=== PATIENT | male | born 1990 | race Caucasian/White ===

== ENCOUNTER 2018-09-27 21:05 | Emergency (ER) | payer MEDICAID ==
--- NOTE | 2018-09-27 21:18 | ED ---
Neurological HPI - HPI Summary HPI Summary: A 28 y/o male brought in by [facility] ambulance presents to [facility] with a chief complaint of a possible seizure today. The patient was playing basketball outside all day today and had a seizure when he went to take a shower. The patient was reportedly post-ictal upon EMS arrival. Per EMS, the patient's eyes were rolling back and forth. The patient has a Hx of seizures. - History of Current Complaint Chief Complaint: EDSeizure Stated Complaint: "SEIZURE PER EMS" Hx Obtained From: Patient, EMS Onset/Duration: Started minutes ago, Resolved Timing: Intermittent Episodes Lasting: - unkown Current Severity: Mild Seizure Severity: Mild Pain Intensity: 0 Pain Scale Used: 0-10 Numeric Character: Unable To Describe Syncope Context: Unknown Aggravating: Nothing Alleviating: Nothing Associated Signs and Symptoms: Negative: Fever - Allergy/Home Medications Allergies/Adverse Reactions: Allergies Allergy/AdvReac Type Severity Reaction Status Date / Time Penicillins Allergy Unknown Verified 09/27/18 21:13 Reaction Details Home Medications: Home Medications Acetaminophen 650 mg PO Q6H PRN 09/27/18 [History Confirmed 09/27/18] Cetirizine* [ZyrTEC 10 MG TAB*] 10 mg PO DAILY 09/27/18 [History Confirmed 09/27] Divalproex Sodium [Depakote] 1,000 mg PO QPM 09/27/18 [History Confirmed ] Divalproex Sodium [Depakote] 250 mg PO QPM 09/27/18 [History Confirmed 09/27/18] Docusate Sodium [Colace] 100 mg PO DAILY 09/27/18 [History Confirmed 09/27/18] PARoxetine HCL TAB* [Paxil TAB*] 25 mg PO DAILY 09/27/18 [History Confirmed 07/13] Topiramate [Topamax] 25 mg PO DAILY 09/27/18 [History Confirmed 09/27/18] cloNIDine TAB* [Catapres 0.1 MG TAB*] 0.2 mg PO DAILY 09/27/18 [History Confirmed 09/27/18] PMH/Surg Hx/FS Hx/Imm Hx Sensory History: Denies: Hx Deafness EENT History: Denies: Hx Deafness - Immunization History Date of Tetanus Vaccine: unk Date of Influenza Vaccine: unk Infectious Disease History: No Infectious Disease History: Denies: Traveled Outside the [place] in Last 30 Days - Family History Known Family History: Positive: Hypertension - paternal grandmother, Diabetes - paternal grandmother - Social History Alcohol Use: None Substance Use Type: Reports: None Smoking Status (MU): Never Smoked Tobacco Review of Systems Negative: Fever Neurological: Other - positive: seizure All Other Systems Reviewed And Are Negative: Yes Physical Exam - Summary Physical Exam Summary: Appearance: Well-appearing, Well-nourished, lying in bed comfortably Skin: Warm, dry, no obvious rash Eyes: sclera anicteric, no conjunctival pallor ENT: mucous membranes moist, pharynx appears normal Neck: Supple, nontender Respiratory: Clear to auscultation, no signs of respiratory distress Cardiovascular: Normal S1, S2. No murmurs. Normal distal pulses in tibial and radial bilaterally. Abdomen: Soft, nontender, normal active bowel sounds present Musculoskeletal: Normal, Strength/ROM Intact Neurological: A&Ox3, awake and alert, mentation is normal, speech is fluent and appropriate Psychiatric: affect is normal, does not appear anxious or depressed Triage Information Reviewed: Yes Vital Signs On Initial Exam: Initial Vitals Temp Pulse Resp BP Pulse Ox 98.3 F 70 16 135/77 98 09/27/18 21:08 09/27/18 21:08 09/27/18 21:08 09/27/18 21:08 09/27/18 21:08 Vital Signs Reviewed: Yes Diagnostics - Vital Signs Vital Signs Temp Pulse Resp BP Pulse Ox 09/27/18 21:08 98.3 F 70 16 135/77 98 - Laboratory Result Diagrams: 09/27/18 21:34 09/27/18 21:34 Lab Statement: Any lab studies that have been ordered have been reviewed, and results considered in the medical decision making process. Course/Dx - Course Course Of Treatment: A 28 y/o male brought in by [facility] ambulance presents to [facility] with a chief complaint of a possible seizure today. The patient was playing basketball outside all day today and had a seizure when he went to take a shower. The physical exam was unremarkable. Blood work, chemistries, UA and toxicology obtained and are WNL. In the ED course the patient was given Sodium Chloride IV. The patient will be discharged and follow up with his PCP. The patient is agreeable with this plan. - Diagnoses Provider Diagnoses: Syncope Discharge - Sign-Out/Discharge Documenting (check all that apply): Patient Departure - DC Patient Received Moderate/Deep Sedation with Procedure: No - Discharge Plan Condition: Good Disposition: HOME Patient Education Materials: Syncope (ED) Referrals: [facility] [Outside] Additional Instructions: Check in with your regular doctor on Monday. It is not certain whether tonight' s episode was a fainting spell or a seizure, although the EMS personnel did feel you were post-ictal, meaing somewhat confused, which is common after a seizure. In any event you appear stable after a few hours of observation and your blood work looks ok, so it is safe to let you get home tonight. I would recommend rest and plenty of fluids through the weekend. - Billing Disposition and Condition Condition: GOOD Disposition: Home - Attestation Statements Document Initiated by Kaitlynnibe: Yes Documenting Scribe: Jamil Valencia Provider For Whom Laith is Documenting (Include Credential): Chay Alfaro MD Scribe Attestation: I, Jamil Valencia, scribed for Chay Alfaro MD on 10/01/18 at 0544. Scribe Documentation Reviewed: Yes Provider Attestation: The documentation as recorded by the Jamil wooten accurately reflects the service I personally performed and the decisions made by me, Chay Alfaro MD Status of Scribe Document: Viewed
[2018-09-27] MEDS ORDERED: NS 0.9% 1000 ML** 2,000 ML IV ONE (21:24)
[2018-09-27 21:49] LABS: ABS Eosinophils 0.4 10^3/ul (0-0.6); ABS Lymphocytes 1.8 10^3/ul (1.0-4.8); ABS Monocytes 0.8 10^3/ul (0-0.8); ABS Neutrophils 2.8 10^3/ul (1.5-7.7); Eosinophil % 6.8 %; Hematocrit 43 % (42-52); Hemoglobin 14.5 g/dL (14.0-18.0); Lymphocyte % 31.1 %; Mean Corpuscular HGB Conc 34 g/dL (31-36); Mean Corpuscular Hemoglobin 30 pg (27-31); Mean Corpuscular Volume 88 fL (80-94); Mean Platelet Volume 9.5 fL (7.4-10.4); Nucleated Red Blood Cells % 0.1; Platelet Count 181 10^3/uL (150-450); Red Blood Count 4.89 10^6 /uL (4.18-5.48); Red Cell Distribution Width 13 % (10-15); White Blood Count 5.9 10^3/uL (3.5-10.8)
[2018-09-27 21:53] LABS: INR 1.09 (0.82-1.09)
[2018-09-27 22:00] LABS: Urine Appearance Clear; Urine Bilirubin Negative (Negative); Urine Blood Negative (Negative); Urine Color Yellow; Urine Glucose Negative (Negative); Urine Ketones Negative (Negative); Urine Nitrite Negative (Negative); Urine Protein Negative (Negative); Urine Specific Gravity 1.023 (1.010-1.030); Urine Urobilinogen Negative (Negative)
[2018-09-27 22:06] LABS: Albumin 4.3 g/dL (3.2-5.2); Albumin/Globulin Ratio 1.4 (1-3); BUN/Creatinine Ratio 18.2 (8-20); Calcium 9.8 mg/dL (8.6-10.3); EGFR Non-African American 101.7 (>60); Magnesium 1.9 mg/dL (1.9-2.7); Total Bilirubin 0.3 mg/dL (0.2-1.0); Total Protein 7.3 g/dL (6.4-8.9)
[2018-09-28 00:18] VITALS: BP 117/59
== END 2018-09-28 00:17 | disposition home or self-care (01) ==
LOC: EDBD → ED 21:05
DX: R55 Syncope and collapse (principal); Z88.0 Allergy status to penicillin
CPT/HCPCS: 36415; 80053; 80164; 81003; 83605; 83735; 85025; 85610; 96360; 99283

== ENCOUNTER 2018-11-02 20:13 | Emergency (ER) | payer MEDICAID ==
--- NOTE | 2018-11-02 20:19 | ED ---
Neurological HPI - HPI Summary HPI Summary: This patient is a 28 year old male brought in by EMS presenting to [facility] with a chief complaint of seizures. EMS states they were called for a diabetic emergency because of a Hx of diabetes and he was acting disoriented and when his friends tested his sugar he was hyperglycemic (170 g/dl). EMS states the patient was A&O X 3 in the ambulance with a GCS of 15, and a normal glucose of 84 g/dl, with the patients answering all questions. Then he lost consciousness, his lip started quivering, and his right hand started to shake. The patient has a Hx of seizures per EMS. The patient is awake and oriented in the room. He affirms a Hx of seizures. He said he did not have anything to eat today. He says he has been taking his medications for seizures. He says he was playing basketball just prior to the episode. - History of Current Complaint Stated Complaint: SEIZURE PER EMS Hx Obtained From: EMS Onset/Duration: Started minutes ago Onset Severity: Mild Current Severity: Severe Seizure Severity: Mild Syncope Context: Witnessed, Loss of Consciousness: Yes - Allergy/Home Medications Allergies/Adverse Reactions: Allergies Allergy/AdvReac Type Severity Reaction Status Date / Time Penicillins Allergy Unknown Verified 09/27/18 21:13 Reaction Details Home Medications: Home Medications Bismuth Subsalicylate [Pepto-Bismol Max Strength] 525 mg PO 11/02/18 [History] EPINEPHrine [Epipen] 0.3 mg IJ PRN 11/02/18 [History] PMH/Surg Hx/FS Hx/Imm Hx Endocrine/Hematology History: Reports: Hx Diabetes Sensory History: Denies: Hx Deafness Neurological History: Reports: Hx Seizures - Immunization History Date of Tetanus Vaccine: unk Date of Influenza Vaccine: unk - Family History Known Family History: Positive: Hypertension - paternal grandmother, Diabetes - paternal grandmother - Social History Alcohol Use: None Substance Use Type: Reports: None Smoking Status (MU): Never Smoked Tobacco Review of Systems Negative: Fever Neurological: Other - Lip and hand quivering, disoriented Positive: Syncope - LOC All Other Systems Reviewed And Are Negative: Yes Physical Exam - Summary Physical Exam Summary: VITAL SIGNS: Reviewed. GENERAL: Patient is a well-developed and nourished MALE who is lying comfortable in the stretcher. Patient is not in any acute respiratory distress. HEAD AND FACE: No signs of trauma. No ecchymosis, hematomas or skull depressions. No sinus tenderness. EYES: PERRLA, EOMI x 2, No injected conjunctiva, no nystagmus. EARS: Hearing grossly intact. Ear canals and tympanic membranes are within normal limits. MOUTH: Oropharynx within normal limits. NECK: Supple, trachea is midline, no adenopathy, no JVD, no carotid bruit, no c- spine tenderness, neck with full ROM. CHEST: Symmetric, no tenderness at palpation LUNGS: Clear to auscultation bilaterally. No wheezing or crackles. CVS: Regular rate and rhythm, S1 and S2 present, no murmurs or gallops appreciated. ABDOMEN: Soft, non-tender. No signs of distention. No rebound no guarding, and no masses palpated. Bowel sounds are normal. EXTREMITIES: FROM in all major joints, no edema, no cyanosis or clubbing. NEURO: Alert and oriented x 3. No acute neurological deficits. Speech is normal and follows commands. SKIN: Dry and warm Triage Information Reviewed: Yes Vital Signs On Initial Exam: Temp Pulse Resp BP Pulse Ox 98.8 F 64 16 128/77 98 11/02/18 20:14 11/02/18 20:14 11/02/18 20:14 11/02/18 20:14 11/02/18 20:14 Vital Signs Reviewed: Yes Diagnostics - Laboratory Result Diagrams: 11/02/18 21:02 11/02/18 21:02 Lab Statement: Any lab studies that have been ordered have been reviewed, and results considered in the medical decision making process. - EKG 2137 Cardiac Rate: Bradycardia - 55 BPM EKG Rhythm: Sinus Bradycardia Ectopy: PVCs Course/Dx - Course Course Of Treatment: This patient is a 28 year old male brought in by EMS presenting to [facility] with a chief complaint of seizures. Patient's labs are within normal limits. Suggest increasing his topamax from 25 to 50 mg. A plan for discharge was discussed with the patient and he was agreeable with this plan. - Diagnoses Provider Diagnoses: Syncope, Seizure Discharge - Sign-Out/Discharge Documenting (check all that apply): Patient Departure - Discharge Patient Received Moderate/Deep Sedation with Procedure: No - Discharge Plan Condition: Stable Disposition: HOME Patient Education Materials: Syncope (ED), Epilepsy (ED) Referrals: Nestor GRACE,Jose Granados [Primary Care Provider] - Additional Instructions: Return to ED with any new or worsening symptoms. - Attestation Statements Document Initiated by Scribe: Yes Documenting Scribe: Jose Vann Provider For Whom Scribe is Documenting (Include Credential): Diandra Torres MD Scribe Attestation: IJose, scribed for Diandra Torres MD on 11/02/18 at 2150. Status of Scribe Document: Ready
[2018-11-02 21:08] LABS: ABS Eosinophils 0.3 10^3/ul (0-0.6); ABS Monocytes 0.8 10^3/ul (0-0.8); ABS Neutrophils 3.8 10^3/ul (1.5-7.7); Eosinophil % 3.8 %; Hematocrit 43 % (42-52); Hemoglobin 15.1 g/dL (14.0-18.0); Lymphocyte % 29.3 %; Mean Corpuscular HGB Conc 35 g/dL (31-36); Mean Corpuscular Hemoglobin 30 pg (27-31); Mean Corpuscular Volume 87 fL (80-94); Mean Platelet Volume 8.8 fL (7.4-10.4); Platelet Count 180 10^3/uL (150-450); Red Blood Count 4.97 10^6 /uL (4.18-5.48); Red Cell Distribution Width 13 % (10-15); White Blood Count 6.9 10^3/uL (3.5-10.8)
[2018-11-02 21:26] LABS: Albumin 4.6 g/dL (3.2-5.2); Albumin/Globulin Ratio 1.4 (1-3); BUN/Creatinine Ratio 19.1 (8-20); Calcium 9.6 mg/dL (8.6-10.3); EGFR African American 121.4 (>60); EGFR Non-African American 100.4 (>60); Globulin 3.3 g/dL (2-4); Magnesium 1.9 mg/dL (1.9-2.7); Potassium 4.6 mmol/L (3.5-5.0); Total Bilirubin 0.4 mg/dL (0.2-1.0); Total Protein 7.9 g/dL (6.4-8.9)
[2018-11-02] MEDS ORDERED: Topiramate TAB(*) 25 MG PO ONE (21:50)
[2018-11-02 22:42] LABS: Urine Appearance Clear; Urine Bilirubin Negative (Negative); Urine Blood Negative (Negative); Urine Color Yellow; Urine Glucose Negative (Negative); Urine Ketones Trace (Negative); Urine Nitrite Negative (Negative); Urine Protein Negative (Negative); Urine Specific Gravity 1.012 (1.010-1.030); Urine Urobilinogen Negative (Negative)
[2018-11-02 22:50] VITALS: BP 129/74
== END 2018-11-02 22:51 | disposition home or self-care (01) ==
LOC: ED 20:13
DX: R56.9 Unspecified convulsions (principal); R55 Syncope and collapse; E11.9 Type 2 diabetes mellitus without complications; Z88.0 Allergy status to penicillin; Z79.899 Other long term (current) drug therapy
CPT/HCPCS: 36415; 80053; 80164; 81003; 82550; 83735; 85025; 93005; 99284; A9270-GY

== ENCOUNTER 2019-07-08 15:36 | Emergency (ER) | payer MEDICAID ==
--- NOTE | 2019-07-08 15:48 | ED ---
Head Injury - HPI Summary HPI Summary: 29 y/o M presenting from [facility] to [facility] accompanied by aide c/o 09/03 frontal headache and avulsion of skin at the left forehead at hairline after hitting his head on a wall at 1500 today. Per aide, patient was having a behavior issue and hit his head on a wall. No LOC, vomiting, weakness in extremities. Patient is able to ambulate. Symptoms aggravated by nothing. Symptoms alleviated by nothing. Medications reviewed. Allergies noted. Patient is allergic to penicillins. - History Of Current Complaint Chief Complaint: EDHeadInjury Stated Complaint: HEAD INJURY PER PT Time Seen by Provider: 07/08/19 15:43 Hx Obtained From: Patient, Family/Circular Sawyer Helper - aide Mechanism Of Injury: Other - hitting his head on wall Onset/Duration: Started Minutes Ago - 1500 today, Still Present Severity Currently: Moderate Pain Intensity: 6 Pain Scale Used: 0-10 Numeric Location of Head Injury: Frontal Location: Discrete At: - frontal Aggravating Factor(s): Other: - NOthing Alleviating Factor(s): Other: - Mpthomg Associated Signs And Symptoms: Negative - LOC, vomiting, weakness in extremities - Allergies/Home Medications Allergies/Adverse Reactions: Allergies Allergy/AdvReac Type Severity Reaction Status Date / Time Penicillins Allergy Unknown Verified 07/08/19 15:42 Reaction Details Home Medications: Home Medications Acetaminophen 650 mg PO Q6H PRN 09/27/18 [History Confirmed 11/02/18] Cetirizine* [ZyrTEC 10 MG TAB*] 10 mg PO DAILY PRN 09/27/18 [History Confirmed 11/02/18] Divalproex Sodium [Depakote] 1,000 mg PO QPM 09/27/18 [History Confirmed ] Divalproex Sodium [Depakote] 250 mg PO QPM 09/27/18 [History Confirmed 11/02/18] Docusate Sodium [Colace] 100 mg PO DAILY 09/27/18 [History Confirmed 11/02/18] PARoxetine HCL TAB* [Paxil TAB*] 25 mg PO DAILY 09/27/18 [History Confirmed 12/13] Topiramate [Topamax] 25 mg PO DAILY 09/27/18 [History Confirmed 11/02/18] cloNIDine TAB* [Catapres 0.1 MG TAB*] 0.2 mg PO DAILY 09/27/18 [History Confirmed 11/02/18] Bismuth Subsalicylate [Pepto-Bismol Max Strength] 525 mg PO 11/02/18 [History] EPINEPHrine [Epipen] 0.3 mg IJ PRN 11/02/18 [History] PMH/Surg Hx/FS Hx/Imm Hx Endocrine/Hematology History: Reports: Hx Diabetes Neurological History: Reports: Hx Seizures - Surgical History Surgical History: None - Immunization History Date of Tetanus Vaccine: unk Date of Influenza Vaccine: unk Infectious Disease History: No Infectious Disease History: Denies: Traveled Outside the [place] in Last 30 Days - Family History Known Family History: Positive: Hypertension - paternal grandmother, Diabetes - paternal grandmother - Social History Alcohol Use: None Substance Use Type: Reports: None Hx Tobacco Use: No Smoking Status (MU): Never Smoked Tobacco Review of Systems Negative: Vomiting Positive: Other - avulsion of skin at the left forehead at hairline Neurological/Mental Status: Negative - LOC Positive: Headache. Negative: Weakness All Other Systems Reviewed And Are Negative: Yes Physical Exam - Summary Physical Exam Summary: Constitutional: Well-developed, Well-nourished, Alert. (-) Distressed Skin: Warm, Dry; avulsion of skin at the left forehead at hairline, no laceration, area is roughly 3-cm by 2-cm, no venus tenderness HENT: Normocephalic; Atraumatic Eyes: Conjunctiva normal Neck: Musculoskeletal ROM normal neck. (-) JVD, (-) Stridor, (-) Tracheal deviation Cardio: Rhythm regular, rate normal, Heart sounds normal; Intact distal pulses; Radial pulses are 2+ and symmetric. (-) Murmur Pulmonary/Chest wall: Effort normal. (-) Respiratory distress, (-) Wheezes, (-) Rales Abd: Soft, (-) tenderness, (-) Distension, (-) Guarding, (-) Rebound Musculoskeletal: (-) Edema Lymph: (-) Cervical adenopathy Neuro: Alert, Oriented x3 Psych: Mood and affect Normal Triage Information Reviewed: Yes Vital Signs On Initial Exam: Initial Vitals Temp Pulse Resp BP Pulse Ox 97.7 F 71 19 138/81 99 07/08/19 15:37 07/08/19 15:37 07/08/19 15:37 07/08/19 15:37 07/08/19 15:37 Vital Signs Reviewed: Yes Procedures - Sedation Patient Received Moderate/Deep Sedation with Procedure: No Diagnostics - Vital Signs Vital Signs Temp Pulse Resp BP Pulse Ox 07/08/19 15:37 97.7 F 71 19 138/81 99 - Laboratory Lab Statement: Any lab studies that have been ordered have been reviewed, and results considered in the medical decision making process. Head Injury Course/Dx Course Of Treatment: Patient is here after a mechanical injury. Patient does not need a CT brain per Clinical decision making rules. Patient has an area of skin avulsion that is not suturable. Patient had his wound debrided and a dressing was applied. Patient is up-to-date on tetanus. - Diagnoses Provider Diagnoses: Closed head injury, Skin avulsion Discharge ED - Sign-Out/Discharge Documenting (check all that apply): Patient Departure - Discharge Plan Condition: Stable Disposition: HOME Patient Education Materials: Head Injury (ED) Referrals: [facility]or GRACE,Jose Granados [Primary Care Provider] - 1 Day Additional Instructions: Do local wound care with antibiotic ointment and dressing changes for the next 2 days. You can shower like normal. It might hurt when you get soap in the wound but that's fine to get soap in the wound. Please follow up with your primary care physician within three days. Please return to the Emergency Department for any new, worsening, or concerning symptoms (surrounding redness, pus draining, fever). - Billing Disposition and Condition Condition: STABLE Disposition: Home - Attestation Statements Document Initiated by Laith: Yes Documenting Scribe: Pat Suero Provider For Whom Laith is Documenting (Include Credential): Silvio Langston MD Scribe Attestation: IPat, scribed for Silvio Langston MD on 07/08/19 at 1759. Scribe Documentation Reviewed: Yes Provider Attestation: The documentation as recorded by the Pat wooten accurately reflects the service I personally performed and the decisions made by me, Silvio Langston MD Status of Scribe Document: Viewed
[2019-07-08] MEDS ORDERED: Bacitracin OINTMENT* 0.5% 0.5 oz TUBE TOPICAL ONE (15:55)
--- OUTSIDE RECORDS SUMMARY | 2019-07-08 16:09 | XMS REPORT | Continuity of Care Document ---
:1990 External Reference #:[id number] Author Name Bonifacio Mckenzie NP (transmitted by agent of provider Renae Vasquez) Address [address], [place] [address] Care Team Providers Name Role Phone Oanh Wall NP - Family Care Team Information Operator Technician [phone] Problems Description No Information Available Social History Type Date Description Comments Sex Unknown ETOH Use Never used alcohol Tobacco Use Start: Unknown Patient has never smoked Recreational Drug Use Never Used Drugs Smoking Status Reviewed: 05/28/19 Patient has never smoked Allergies, Adverse Reactions, Alerts Active Allergies Reaction Severity Comments Date Penicillin 05/28/2019 Inactive Allergies NKDA 04/19/2019 Medications Active Medications SIG Qnty Indications Ordering Date Provider Divalproex Sodium Take one tab po 180tabs G40.209 Benji SBailey 05/28/2019 500mg in the morning Ronen Ortiz Tablets (500 mg) and one tab at night with 250 mg tab (750 mg) Divalproex Sodium take 1 tablet by 90tabs G40.209 Benji SBailey 05/28/2019 250mg mouth at night Ronen Ortiz Tablets DR (take one 500 mg and 250 mg together at night) Paxil CR 2 by mouth every Unknown 12.5mg Tablets day ER 24HR Clonidine HCL 1 by mouth two Unknown 0.2mg times a day Tablets Acetaminophen 2 tabs by mouth Unknown 325mg every 6 hours Tablets (max 3000mg qd) Colace 1 tab by mouth Unknown 100mg Capsules 2-3 times a day Zyrtec Allergy take one tablet Unknown 10mg by mouth in the Capsules evening Immunizations Description No Information Available Vital Signs Date Vital Result Comment 05/28/2019 1:39pm Height 70 inches 5'10" Weight 218.00 lb Heart Rate 62 /min BP Systolic 124 mmHg BP Diastolic 64 mmHg BMI (Body Mass Index) 31.3 kg/m2 Results Description No Information Available Procedures Description No Information Available Medical Devices Description No Information Available Encounters Type Date Location Provider Dx Diagnosis Office Visit 05/28/2019 [facility] Bonifacio Mckenzie NP G40.209 Local- rel symptc 1:30p [facility] epi w cmplx prt seiz,not ntrct,w/o stat epi Assessments Date Code Description Provider 05/28/2019 G40.209 Localization-related (focal) (partial) symptomatic Bonifacio Mckenzie 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05/28/2019 - Bonifacio Mckenzie NPG40.209 Localization- related (focal) (partial) symptomatic epilepsy and epileptic syndromes with complex partial seizures, not intractable, without status epilepticusNew Medication:Divalproex Sodium 500 mg - Take one tab po in the morning (500 mg) and one tab at night with 250 mg tab (750 mg)Divalproex Sodium 250 mg - take 1 tablet by mouth at night (take one 500 mg and 250 mg together at night)Follow up :SIX MONTHSRecommendations:D/C Topiramate. Take Depakote 500 mg in the morning and 750 mg at night. In two weeks, obtain trough level for Depakote. Hold the morning dose of Depakote that day until blood work is drawn and then he may take it after blood work is completed. We will also order a CBC and CMP. Record any seizure related activity. Contact 911 for seizures lasting longer than 5 minutes. Functional Status Description No Information Available Mental Status Description No Information Available Referrals Description No Information Available
--- OUTSIDE RECORDS SUMMARY | 2019-07-08 16:09 | XMS REPORT | Continuity of Care Document ---
:1990 Author Organization [address] [place] [address] Address [address] [place] [address] Phone Care Team Providers Name Role Phone LIZBETH VALENTINO MD Unavailable Unavailable Allergies, Adverse Reactions, Alerts Substance Reaction Status spider venom Active PENICILLIN Unknown (unknown) Active Medications Medication Instructions Dosage Effective Status Comments Dates (start - stop) Tamiflu 75 mg take 1 capsule by 75 MG - Active capsule oral route every day divalproex ER 500 take 2 tablet by - Active mg tablet,extended oral route every release 24 hr evening at 8 pm divalproex ER 250 take 1 tablet by - Active mg tablet,extended oral route every release 24 hr evening at 8 pm topiramate 25 mg take 1 tablet by - Active tablet oral route every day at 8 am. Paxil CR 25 mg take 1 tablet by 25 MG - Active tablet,extended oral route every release day epinephrine 0.3 inject 0.3 0.3 MG - Active mg/0.3 mL milliliter by injection, intramuscular auto-injector route once as needed for anaphylaxis FreeStyle System use by as directed Not Available - Active Kit route every day Colace 100 mg take 1 capsule by - Active capsule oral route 2 times every day at 8 am and 8 pm PRN for constipation clonidine HCl 0.2 take 1 tablet by 0.2 MG - Active mg tablet oral route 2 times every day acetaminophen 325 take 2 tablets by - Active mg capsule mouth every 6 hours as needed. Zyrtec 10 mg take one by mouth - Active capsule daily as needed for seasonal allergy signs and symptoms. Mucinex 1,200 mg take 1 tablet by 1 tablet - No Longer tablet, extended oral route 2 times Active release every day divalproex ER 250 take 1 tablet by - No Longer mg tablet,extended oral route every Active release 24 hr evening at 8 pm divalproex ER 500 take 2 tablet by - No Longer mg tablet,extended oral route every Active release 24 hr evening at 8 pm Problems Condition Effective Dates (start - stop) Clinical Status Hemorrhoids, unspecified hemorrhoid type Blood in stool Acute non-recurrent sinusitis, unspecified location Constipation, unspecified constipation type Prediabetes ADHD (attention deficit hyperactivity disorder), combined type Developmental delay, mild Seizure disorder History of prediabetes Encounter for general adult medical examination without abnormal findings Encounter for screening for respiratory tuberculosis Current mild episode of major depressive disorder without prior episode Evaluation of hearing impairment Procedures Procedure Date Procedure Unknown Results Test Name Date and Time Measure Units Reference Range Abnormal Flag Status Comments Unknown Encounters Encounter Practice Location Reason(s) Diagnoses Date Provider Providers Description For Visit Copied on Encounter 2019 [facility] [employer], Primary 0-202 LIZBETH. 54 33-57 Care 0 [facility], [place], [place], [place] [address]. [place], [place], tel:[phone], [place] 779844 tel:[phone] 2019 [facility] Hemorrhoids, May- [employer], Primary unspecified 4 [place]. 33-57 Care hemorrhoid 0 54 [facility] [place] [place], [place], [facility] [address]. Tom non-recurrent tel:+[phone] [place], [place], sinusitis, 584[address], [place] unspecified tel:[phone] locationConstipatio [id number] n, unspecified constipation type 2019 [facility] [employer], Primary 3- [place]. 33-57 Care 0 54 [place], [place], [place], [address]. Tom tel:+[phone] [place], [place], [address], [place] tel:[phone] 2019 [facility] MADDIE [employer], Primary 0-202 [place]. 33-57 Care 0 [address] , [place], [place], [address], [address]. Tom tel:+[phone] [place], [place], 0714[address], [place] tel:[phone] 0001 - S Dec-3 [employer], Primary 1-201 LIZBETH. 54 33-57 Care [address] , [facility], [place], [place] [address]. [place], [place], tel:[phone], [place] 568482 tel:[phone] 0001 - S Dec-1 MADDIE [employer], Primary 3-201 [place]. 33-57 Care 9 54 [facility], [place], [place], Street, [address]. Tom tel:+[phone] [place], [place], [address], [place] tel:[phone] 0001 - S Oct-2 [employer], Primary 2-201 LIZBETH. 54 33-57 Care [address] , [facility], [place], [place] [address]. [place], [place], tel:[phone], [place] 944678 tel:[phone] 0001 - [facility] Prediabetes Aug-0 MADDIE [employer], Primary 6-201 [place]. 33-57 Care 9 [address] , [place], [place], Street, [address]. Tom tel:+[phone] [place], [place], 7911[address], [place] tel:[phone] 0001 - S Michael-1 MADDIE [employer], Primary 6-201 [place]. 33-57 Care [address] , [place], [place], Street, [address]. Tom tel:+[phone] [place], [place], [address], [place] tel:[phone] 0001 - S Michael-1 MADDIE [employer], Primary 2-201 [place]. 33-57 Care [address] , [place], [place], Street, [address]. Tom tel:+[phone] [place], [place], [address]77[address], [place] tel: [phone] 0001 - S ADHD (attention [facility], Primary deficit 0-201 [place]. 33-57 Care hyperactivity [address], [place] disorder), combined [place], [place], Street, typeDevelopmental [address]. [place] delay, mildSeizure tel: [place], [place], disorderHistory of [id number], prediabetesEncounte tel: r for general adult [phone] medical examination without abnormal findingsEncounter for screening for respiratory tuberculosisCurrent mild episode of major depressive disorder without prior episodeEvaluation of hearing impairment Family History Family Member Diagnosis Age At Onset Unknown Immunizations Vaccine Date Status Comments Influenza, injectable, administered Source: Other Provider quadrivalent, preservative free, split virus Influenza, injectable, administered Source: Source Unspecified quadrivalent, preservative free, split virus DTaP administered Source: Source Unspecified Payers Payer name Insurance type Covered republican ID Authorization(s) Unknown Social History Type Description Quantity Date Captured Comments Alcohol Use Details Unknown Caffeine Use Details Unknown Tobacco Use Status Unknown Smoking Status Unknown Vital Signs Date / Height Weight BMI Pulse Blood Temperature Respiratory Body Head BMI Time: Rate Pressure Rate Surface Circumference percentile Area Unknown Chief Complaint And Reason For Visit No information Reason For Referral Reason For Referral Unknown Plan Of Care Date Type Action Status Referral Ordered: ordered Neurology (related to Seizure disorder) Referral Ordered: ordered Referrals: Neurology Appointment date/timeframe: 3 Months Referral Ordered: ordered Hearing Test Complete Bilateral Appointment MONICA BAXTER Date Type Problem Goal Intervention Status Start Date Unknown History Of Present Illness Encounter Date Complaint History Of Present Illness No information Functional Status Encounter Date Functional Assessment Cognitive Assessment Unknown Medications Administered Medication Instructions Dosage Effective Dates (start - stop) Status Comments Drug Treatment Unknown Instructions Date Instruction Additional Information See above. Related to Constipation, unspecified constipation type If no improvement with Colace twice Related to Hemorrhoids, unspecified daily every day for 1 week, would hemorrhoid type recommend topical cream or suppository treatment for hemorrhoid and can treat dependent on staff report of patient concerns. Likely related to hemorrhoids, plan Related to Blood in stool to increase Colace from PRN to twice daily x 1 week. If no improvement or increased pain would recommend switching to Magnesium Citrate for a few days and continuing Colace PRN. Would also recommend treating patient for hemorrhoids if stool softener does not work. Recommended taking to ER for severe abdominal pain, increased LLQ pain, fever 101.5 or greater, increased N/V, or onset of diarrhea in presence of abdominal pain. Mucinex sent in for patient to be Related to Acute non-recurrent used twice daily for 7 days for sinusitis, unspecified location acute sinus symptoms. Risks and benefits of new medication discussed. Maintain adequate hydration and rest. Saline nasal spray for nasal congestion and nasal symptoms. May use salt water gargles, OTC throat spray, or lozenges for sore throat. Should use Tylenol/Motrin for fever or body aches. Warm moist air may help with relief of irritation and cough. Call or go to emergency department/walk in for worsening symptoms such as fever >101.5, shortness of breath, difficulty breathing, or worsening of current symptoms. Follow up yearly or when needed Related to Prediabetes [facility] Related to Developmental delay, mild Will fax order and referral to Related to Evaluation of hearing Racker to have evaluation completed. impairment Continue all medications as Related to Encounter for general directed. adult medical examination without abnormal findings Blood work to be completed. Fasting Related to History of prediabetes preferred. Can be done at any location in [place] for ease of convenience.Follow up 3-6 months. Continue Depakote as directed. Will Related to Seizure disorder call for referral to neurology. [facility]. No Related to ADHD (attention deficit referral typically required. Can hyperactivity disorder), combined schedule appointment on own through type [employer]. Continue Paxil. Risks and benefits Related to Current mild episode of of new medication discussed.[facility] major depressive disorder [facility]. No referral prior episode typically required. Can schedule appointment on own through [employer].
--- OUTSIDE RECORDS SUMMARY | 2019-07-08 16:09 | XMS REPORT | Continuity of Care Document ---
:1990 Author Organization [address] [place] [address] Address [address] [place] [address] Phone Care Team Providers Name Role Phone JEREMIAH LAND Unavailable Unavailable Allergies, Adverse Reactions, Alerts Substance Reaction Status No Known Allergies Active Medications Medication Instructions Dosage Effective Status Comments Dates (start - stop) divalproex ER 500 take 2 tablet by [...] needed for seasonal allergy signs and symptoms. topiramate 25 mg take 1 tablet by - No Longer tablet oral route every Active day at 8 am. divalproex ER 250 take 1 tablet by - No Longer mg tablet,extended oral route every Active release 24 hr evening at 8 pm divalproex ER 500 take 2 tablet by - No Longer mg tablet,extended oral route every Active release 24 hr evening at 8 pm Problems Condition Effective Dates (start - stop) Clinical Status Prediabetes ADHD (attention deficit hyperactivity disorder), combined [...] Description For Visit Copied on Encounter 2019 [facility] MADDIE [employer], Primary 3- [place]. 33-57 Care 0 54 [facility], [facility]. Tom tel:[phone] [place], [place], [address], tel:[phone] 2019 [facility] MADDIE [employer], Primary 0-202 [place]. 33-57 Care 0 54 [facility], [facility]. Tom tel:[phone] [place], [place], [address]48[address], tel:[phone] 2019 [facility] [employer], Primary 2-202 [place]. 33-[address] [facility] [facility], [facility]. Tom tel:[phone] [place], [place], [address]86[address], tel:[phone] 2019 - [facility] [employer], Primary 1-201 LIZBETH. 54 33-57 Care 9 Main [facility] [address]. [place], tel:[phone], [address]48362 tel:[phone] 2019 - [facility] MADDIE [employer], Primary 3-201 [place]. 33-57 Care 9 54 [place], [place], Street, [address]. Tom tel:+ [place], [place], 209382 [address], [place] tel:[phone] 0001 - S Dec-2 VAL[employer]INO [employer] Inc, Primary 2-201 LIZBETH. 54 Care 9 [facility], [facility], Street, [place], [place] [address]. [place], [place], tel:+ [phone], [place] 867419 tel:[phone] 0001 - S Prediabetes Aug-0 MADDIE [employer], Primary 6-201 [place]. Care 9 54 [facility], [place], [place], Street, [address]. Tom tel:+76 [place], [place], [address], [place] tel:[phone] 0001 - S Michael-1 MADDIE [employer], Primary 6-201 [place]. Care 9 54 [facility], [place], [place], Street, [address]. Tom tel:+ [place], [place], 330436 [address], [place] tel:[phone] 0001 - S Michael-1 MADDIE [employer], Primary 2-201 [place]. Care 9 54 [place], [place], Street, [address]. Tom tel:+ [place], [place], [address]70[address], [place] tel:+ [phone] 0001 - S ADHD (attention Sep- MADDIE [employer] Inc, Primary deficit 0-201 [place]. Care hyperactivity 9 54 [facility], [facility] disorder), [place], [place], [place], typeDevelopmental [address]. [place] delay, mildSeizure tel:+76 [place], [place], disorderHistory of [id number], [place] prediabetesEncounte tel:+ r for general adult [phone] medical examination without abnormal findingsEncounter for screening [...] Unspecified Payers Payer name Insurance type Covered democrat ID Authorization(s) Unknown Social History Type Description [...] (related to Seizure disorder) Referral Ordered: ordered Hearing Test Complete Bilateral Referral Ordered: ordered Referrals: Neurology Appointment date/timeframe: 3 Months Appointment MONICA BAXTER Type Problem Goal Intervention Status Start Date Unknown History Of Present Illness Encounter Date Complaint History Of Present Illness No information Functional Status Encounter Date Functional Assessment Cognitive Assessment Unknown Medications Administered Medication Instructions Dosage Effective Dates (start - stop) Status Comments Drug Treatment Unknown Instructions Date Instruction Additional Information Follow up yearly or when needed Related to Prediabetes [facility] Related to Developmental delay, mild Will fax order and referral to Related to Evaluation of hearing Racker to have evaluation completed. impairment Continue all medications as Related to Encounter for general directed. adult medical examination without abnormal findings Blood work to be completed. Fasting Related to History of prediabetes preferred. Can be done at any location in [place] for ease of convenience.Follow up 3-6 months. Continue Depakote as directed. Will Related to Seizure disorder call for referral to neurology. [facility]. No Related to ADHD (attention deficit referral typically required. Can hyperactivity disorder), combined schedule appointment on own through type [facility] [place]. Continue Paxil. Risks and benefits Related to Current mild episode of of new medication discussed.[facility] major [facility]. No referral prior episode typically required. Can schedule appointment on own through [facility].
--- OUTSIDE RECORDS SUMMARY | 2019-07-08 16:09 | XMS REPORT | Continuity of Care Document ---
:1990 Author Organization [address] [place] [address] Address [address] [place] [address] Phone Care Team Providers Name Role Phone [...] needed for seasonal allergy signs and symptoms. divalproex ER 250 take 1 tablet by [...] Description For Visit Copied on Encounter 2019 [facility] [employer], Primary 3-202 [place]. 33-57 Care 0 54 [place], [place], [place], [address]. Tom tel:[phone] [place], [place], [address], tel:[phone] 2019 [facility] [employer], Primary 4-202 [place]. 33-57 Care 0 [address] [place], [place], Street, [address]. Tom tel:+[phone] [place], [place], [address]24[address], [place] tel:[phone] 2019 [facility] [employer], Primary 0-202 [place]. 33-57 Care 0 [address] [place], [place], Street, [address]. Tom tel:+[phone] [place], [place], 6115[address], [place] tel:[phone] 2019 [facility] [employer], Primary 1-201 LIZBETH. 54 33-57 Care [address] , [facility], [place], [place], [place] [address]. [place], [place], tel:[phone], 974431 tel:[phone] 2019 [facility] [employer], Primary 3-201 [place]. 33-57 Care 9 54 [place], [place], [place], [address]. Tom tel:[phone] [place], [place], 3738[address], [place] tel:+ [phone] 0001 - S Dec- VALENTINO [employer] Inc, Primary 2-201 LIZBETH. 54 Care 9 [facility], [facility], [place], [place], [place] [address]. [place], [place], tel:+ [phone], [phone] tel:+ [phone] 0001 - S Prediabetes Aug-0 [employer]IE [employer], Primary 6-201 [place]. Care 9 54 [facility], [place], [place], [place], [address]. Tom tel:+ [place], [place], [address]183[address], [place] tel:+ [phone] 0001 - S Sep-1 [employer], Primary 6-201 [place]. Care 9 54 [facility], [place], [place], [place], [address]. Tom tel: [place], [place], [address]656[address], [place] tel:+ [phone] 0001 - S Sep-1 [employer], Primary 2-201 [place]. Care 9 54 [facility], [place], [place], [place], [address]. Tom tel:+ [place], [place], [address]686[address], [place] tel:+ [phone] 0001 - S ADHD (attention Sep- MADDIE [employer] Inc, Primary deficit 0-201 [place]. Care hyperactivity 9 54 [facility], [facility] disorder), [place], [place], [place], typeDevelopmental [address]. [place] delay, mildSeizure tel:+76 [place], [place], disorderHistory of [id number], [place] prediabetesEncounte tel: r for general adult [phone] medical examination without abnormal findingsEncounter for screening [...] Appointment date/timeframe: 3 Months Appointment MONICA BAXTER Date Type Problem Goal Intervention Status Start Date Unknown History Of Present Illness Encounter Date Complaint History Of Present Illness No information Functional Status Encounter Date Functional Assessment Cognitive Assessment Unknown Medications Administered Medication Instructions Dosage Effective Dates (start - stop) Status Comments Drug Treatment Unknown Instructions Date Instruction Additional Information Follow up yearly or when needed Related to Prediabetes [facility] Related to Developmental delay, mild Will fax order and referral to Related to Evaluation of hearing Racker to have evaluation completed. impairment Continue all medications as Related to Encounter for general directed. adult medical examination without abnormal findings Blood work to be completed. Fasting Related to History of prediabetes preferred. Can be done at any location in [place] for ease of convenience.Follow up 3-6 months. Continue Depakote as directed. Will Related to Seizure disorder call for referral to neurology. [facility]. No Related to ADHD (attention deficit referral typically required. Can hyperactivity disorder), combined schedule appointment on own through type [employer]. Continue Paxil. Risks and benefits Related to Current mild episode of of new medication discussed.[facility] major depressive disorder [facility]. No referral prior episode typically required. Can schedule appointment on own through [employer].
--- OUTSIDE RECORDS SUMMARY | 2019-07-08 16:09 | XMS REPORT | Continuity of Care Document ---
:1990 External Reference #:[id number] Author Name Bonifacio Mckenzie NP (transmitted by agent of provider Tiffanie Yadav) Address [address] [facility], [place] [address] Care Team Providers Name Role Phone Oanh Wall NP - Family Care Team Information Oncology Pharmacist [phone] Problems Description No Information Available Social History [...] Medical Devices Description No Information Available Encounters Description No Information Available Assessments Date Code Description Provider 05/28/2019 G40.209 Localization-related (focal) (partial) symptomatic Bonifacio Mckenzie NP epilepsy and epileptic syndromes with complex partial seizures, not intractable, without status epilepticus Plan of Treatment Future Appointment(s):11/26/2019 8:30 am - Bonifacio Mckenzie [facility] at [facility]05/28/2019 - Bonifacio Mckenzie NPG40.209 Localization- related (focal) [...]
[2019-07-08 16:20] VITALS: BP 0/0
== END 2019-07-08 16:18 | disposition home or self-care (01) ==
LOC: ED 15:36
DX: S09.90XA Unspecified injury of head, initial encounter (principal); S01.81XA Laceration without foreign body of other part of head, initial encounter; W22.01XA Walked into wall, initial encounter; Y92.9 Unspecified place or not applicable; Z88.0 Allergy status to penicillin; Z79.899 Other long term (current) drug therapy; R51 Headache
CPT/HCPCS: 99282; A9270-GY